=== PATIENT | male | born 1995 | race African-American/Black ===

== ENCOUNTER 2021-01-10 18:53 | Emergency (ER) | payer SELFPAY ==
[2021-01-10] MEDS ORDERED: ACETAMINOPHEN 500 MG TAB ONE (19:44)
[2021-01-10] MEDS ORDERED: HYDROCODONE/APAP 7.5/325 MG TAB ONE (20:59)
[2021-01-10] MEDS ORDERED: BUPIVACAINE 0.5% PF 10 ML VIAL ONE (20:59)
[2021-01-10] MEDS ORDERED: LIDOCAINE 1% MPF 30 ML VIAL ONE (21:00)
[2021-01-10] MEDS ORDERED: TETANUS & DIPHTHERIA TOX,ADULT 0.5 ML VIAL ONE (21:00)
[2021-01-10] MEDS ORDERED: DOXYCYCLINE 100 MG CAP PO ONE (22:17)
[2021-01-10] MEDS ORDERED: SMZ./TMP. 800/160 MG TABLET ONE (22:17)
--- NOTE | 2021-01-10 22:22 | ER ---
Nurse's Notes [facility] Name: Edmundo Vázquez Age: 25 yrs Sex: Male : 1995 Arrival Date: 01/10/2021 Time: 18:55 Bed 12 Private MD: Diagnosis: Puncture wound with foreign body of finger without damage to nail-middle phalanx of right middle finger Presentation: 01/10 19:13 Chief complaint: Patient states: About an hour ago pt was fishing and has a catfish vg1 shahida stuck in Right middle finger. neurology technologist removed fish; shahida is unable to be removed. Coronavirus screen: Client denies travel out of the [place] in the last 14 days. Ebola Screen: Patient negative for fever greater than or equal to 101.5 degrees Fahrenheit, and additional compatible Ebola Virus Disease symptoms. Initial Sepsis Screen: Does the patient meet any 2 criteria? No. Patient's initial sepsis screen is negative. Does the patient have a suspected source of infection? No. Patient's initial sepsis screen is negative. Risk Assessment: Do you want to hurt yourself or someone else? Patient reports no desire to harm self or others. Onset of symptoms was January 10, 2021. 19:13 Method Of Arrival: Ambulatory vg1 19:13 Acuity: SUE 3 vg1 Triage Assessment: 19:18 General: Appears in no apparent distress. uncomfortable, Behavior is calm, cooperative. vg1 Pain: Complains of pain in dorsal aspect of middle phalanx of right middle finger and palmar aspect of middle phalanx of right middle finger Pain currently is 7 out of 10 on a pain scale. Historical: - Allergies: 19:18 No Known Allergies; vg1 - Home Meds: 19:18 None [Active]; vg1 - PMHx: 19:18 None; vg1 - Immunization history:: Adult Immunizations up to date. - Social history:: Smoking status: Patient denies any tobacco usage or history of. Screenin:47 Abuse screen: Denies threats or abuse. Nutritional screening: No deficits noted. bb Tuberculosis screening: No symptoms or risk factors identified. Fall Risk None identified. Assessment: 19:23 Reassessment: Received VO from Nakul ROCHA to administer Tylenol 1 g PO x1. vg1 22:45 Reassessment: Patient is alert, oriented x 3, equal unlabored respirations, skin bb warm/dry/pink. bandage to right middle finger in place, pt verbalized understanding of and agrees to plan of care discharge instructions given pt ambulated with steady gait to exit. Vital Signs: 19:13 BP 122 / 74; Pulse 70; Resp 16; Temp 98.8; Pulse Ox 97% ; Weight 81.65 kg; Height 6 ft. vg1 2 in. (187.96 cm); Pain 7/10; 22:47 BP 123 / 65; Pulse 60; Resp 14 S; Temp 97.6(TE); Pulse Ox 93% on R/A; Pain 0/10; bb 19:13 Body Mass Index 23.11 (81.65 kg, 187.96 cm) vg1 ED Course: 18:55 Patient arrived in ED. mr 19:18 Triage completed. vg1 19:18 Arm band placed on. vg1 19:24 Nakul Traylor PA is PHCP. cp 19:24 Pavel Lrod MD is Attending Physician. cp 21:42 Patito Bhatia RN is Primary Nurse. bb 22:05 XRAY Finger-Thumb RIGHT: right middle In Process Unspecified. EDMS 22:20 Daniel Vazquez MD is Referral Physician. cp 22:44 No provider procedures requiring assistance completed. Patient did not have IV access bb during this emergency room visit. Dressings: Kerlix 4X4s X 1; right middle finger triple antibiotic ointment. 22:47 Patient has correct armband on for positive identification. bb Administered Medications: 19:23 Drug: Tylenol 1000 mg Route: PO; vg1 20:43 Follow up: Response: No adverse reaction bb 20:43 Drug: Tetanus-Diphtheria Toxoid Adult 0.5 ml {Supervisor Claims: [email or web address]. Exp: bb 08/16/2022. Lot #: [id number]. } Route: IM; Site: right deltoid; 22:19 Follow up: Response: No adverse reaction bb 20:44 Drug: Hydrocodone-Acetaminophen (7.5 mg-325 mg) 1 tabs {Note: RASS 0.} Route: PO; bb 22:19 Follow up: Response: No adverse reaction; Pain is decreased; RASS: Alert and Calm (0) bb 21:45 Drug: Lidocaine (1 %) 10 ml {Note: by Nakul ROCHA to affected area.} Volume: 20 ml; bb Route: Infiltration; 22:20 Follow up: Response: No adverse reaction bb 21:45 Drug: Marcaine (bupivacaine) (0.5 %) 10 ml {Note: to affected area by Nakul ROCHA.} bb Volume: 10 ml; Route: Infiltration; 22:20 Follow up: Response: No adverse reaction bb 22:00 Drug: Bactrim (trimethoprim-sulfamethoxazole) (160 mg-800 mg (DS) 1 tablet Route: PO; bb 22:44 Follow up: Response: No adverse reaction bb 22:00 Drug: Doxycycline 100 mg Route: PO; bb 22:44 Follow up: Response: No adverse reaction bb Outcome: 22:22 Discharge ordered by . leonor 22:47 Discharged to home ambulatory. bb 22:47 Condition: stable 22:47 Discharge instructions given to patient, Instructed on discharge instructions, follow up and referral plans. medication usage, wound care, Demonstrated understanding of instructions, follow-up care, medications, wound care, Prescriptions given X 3. 22:48 Patient left the ED. bb Signatures: Dispatcher [employer] Carley Ruiz Patito Bhatia, RN RN Nakul Teran PA PA cp Garcia, Victoria, RN RN vg1
--- NOTE | 2021-01-10 22:22 | EDPHYS ---
Physician Documentation [facility] Name: Edmundo Vázquez Age: 25 yrs Sex: Male : 1995 Arrival Date: 01/10/2021 Time: 18:55 Bed 12 Private MD: ED Physician Pavel Lord HPI: 01/10 20:00 This 25 yrs old Black Male presents to ER via Ambulatory with complaints of fish stuck cp in finger. 20:00 The patient or guardian complains of injury, pain, that is acute, a puncture wound, cp shahida of catfish. The complaints affect the radial side of middle phalanx left middle finger. 20:00 Context: The problem was sustained outdoors. Onset: The symptoms/episode began/occurred cp just prior to arrival. Treatment prior to arrival includes: no previous treatment. Associated signs and symptoms: Pertinent positives: swelling, Pertinent negatives: decreased range of motion, numbness, weakness. Historical: - Allergies: 19:18 No Known Allergies; vg1 - Home Meds: 19:18 None [Active]; vg1 - PMHx: 19:18 None; vg1 - Immunization history:: Adult Immunizations up to date. - Social history:: Smoking status: Patient denies any tobacco usage or history of. ROS: 20:05 MS/extremity: Positive for swelling, tenderness, of the middle phalanx right middle cp finger, Negative for decreased range of motion, paresthesias. 20:05 Skin: Positive for puncture, of the radial side of middle phalanx right middle finger, embedded foreign body. 20:05 Constitutional: Negative for body aches, chills, fever. cp 20:05 Cardiovascular: Negative for chest pain. 20:05 Respiratory: Negative for cough, shortness of breath. 20:05 Abdomen/GI: Negative for abdominal pain. 20:05 Neuro: Negative for altered mental status, headache. 20:05 All other systems are negative. Exam: 20:10 Head/Face: Normocephalic, atraumatic. cp 20:10 Constitutional: The patient appears in no acute distress, alert, awake, non-toxic, well developed, well nourished, uncomfortable. 20:10 Chest/axilla: Inspection: normal. 20:10 Cardiovascular: Rate: normal. 20:10 Respiratory: the patient does not display signs of respiratory distress, Respirations: normal. 20:10 Musculoskeletal/extremity: Extremities: noted in the right middle finger: ROM: limited cp active range of motion due to pain, in the right middle finger, Perfusion: the extremity is normally perfused throughout, Sensation intact. Tendon exam: specific tendon testing normal through active and passive range of motion 20:10 Skin: injury, that can be described as foreign body containing, without bleeding, mild swelling, puncture(s), that are deep, of the radial side middle phalanx right middle finger. Vital Signs: 19:13 BP 122 / 74; Pulse 70; Resp 16; Temp 98.8; Pulse Ox 97% ; Weight 81.65 kg; Height 6 ft. vg1 2 in. (187.96 cm); Pain 7/10; 22:47 BP 123 / 65; Pulse 60; Resp 14 S; Temp 97.6(TE); Pulse Ox 93% on R/A; Pain 0/10; bb 19:13 Body Mass Index 23.11 (81.65 kg, 187.96 cm) vg1 Procedures: 22:00 Foreign Body Removal: a fish bone, from the radial side middle phalanx right middle cp finger, by using a hemostat, Dressinx4s were used to dress the wound, The patient tolerated the removal well, digital block performed with 8 ccs of mixture 1% lidocaine w/o epi and 0.5% marcaine. MDM: 20:00 Differential diagnosis: open fracture, puncture wound, tendon injury, cellulitis. cp 20:28 Patient medically screened. cp 22:22 Data reviewed: vital signs, nurses notes, radiologic studies, plain films. cp 22:22 Test interpretation: by ED physician or midlevel provider: xrays of right middle finger cp negative for fracture. Counseling: I had a detailed discussion with the patient and/or guardian regarding: the historical points, exam findings, and any diagnostic results supporting the discharge/admit diagnosis, radiology results, to return to the emergency department if symptoms worsen or persist or if there are any questions or concerns that arise at home. Response to treatment: the patient's symptoms have markedly improved after treatment, and as a result, I will discharge patient. Special discussion: I discussed in detail with the patient the higher chance of wound infection based on his presenting history. 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 Exp: bb 08/16/2022. Lot #: [id number]. } Route: IM; Site: right deltoid; 22:19 Follow up: Response: No adverse reaction bb 20:44 Drug: Hydrocodone-Acetaminophen (7.5 mg-325 mg) 1 tabs {Note: RASS 0.} Route: PO; bb 22:19 Follow up: Response: No adverse reaction; Pain is decreased; RASS: Alert and Calm (0) bb 21:45 Drug: Lidocaine (1 %) 10 ml {Note: by Nakul ROCHA to affected area.} Volume: 20 ml; bb Route: Infiltration; 22:20 Follow up: Response: No adverse reaction bb 21:45 Drug: Marcaine (bupivacaine) (0.5 %) 10 ml {Note: to affected area by Nakul ROCHA.} bb Volume: 10 ml; Route: Infiltration; 22:20 Follow up: Response: No adverse reaction bb 22:00 Drug: Bactrim (trimethoprim-sulfamethoxazole) (160 mg-800 mg (DS) 1 tablet Route: PO; bb 22:44 Follow up: Response: No adverse reaction bb 22:00 Drug: Doxycycline 100 mg Route: PO; bb 22:44 Follow up: Response: No adverse reaction bb Disposition: 22:30 Chart complete. cp 01/11 03:15 Co-signature as Attending Physician, Pavel Lord MD. pkl Disposition Summary: 01/10/21 22:22 Discharge Ordered Location: Home cp Problem: new cp Symptoms: have improved cp Condition: Stable cp Diagnosis - Puncture wound with foreign body of finger without damage to nail - middle phalanx cp of right middle finger Followup: cp - With: Daniel Vazquez MD - When: 2 - 3 days - Reason: Worsening of condition Discharge Instructions: - Discharge Summary Sheet cp - Puncture Wound cp - Hand or Foot Foreign Body, Adult cp Forms: - Medication Reconciliation Form cp - Thank You Letter cp - Antibiotic Education cp - Prescription Opioid Use cp Prescriptions: - Doxycycline Hyclate 100 mg Oral Tablet - take 1 tablet by ORAL route every 12 hours; 20 tablet; Refills: 0, Product cp Selection Permitted - Diclofenac Sodium 75 mg Oral tablet,delayed release (DR/EC) - take 1 tablet by ORAL route 2 times per day; 20 tablet; Refills: 0, Product cp Selection Permitted - Bactrim DS 800-160 mg Oral Tablet - take 1 tablet by ORAL route every 12 hours for 10 days; 20 tablet; Refills: 0, cp Product Selection Permitted Signatures: Dispatcher [employer] Pavel Rajan MD MD pkl Ballard, Brenda, RN RN bb Nakul Traylor, Phyllis Castaneda cp RN RN vg1 Corrections: (The following items were deleted from the chart) 01/10 22:44 22:20 Splint - Finger ordered. cp heraclio
[2021-01-10 22:58] VITALS: BP 123/65; TEMP 97.6; O2SAT 93
--- NOTE | 2021-01-11 08:57 | RAD REPORT ---
EXAM DESCRIPTION: RAD - Finger-Thumb Right - 01/10/2021 10:05 pm CLINICAL HISTORY: puncture wound COMPARISON: No comparisons FINDINGS: No right middle finger fractures identified. No radiopaque foreign body. IMPRESSION: No acute osseous abnormality or radiopaque foreign body.
== END 2021-01-10 22:48 | disposition home or self-care (01) ==
LOC: ER 18:53
PROC: 3E0T3BZ Introduction of Anesthetic Agent into Peripheral Nerves and Plexi, Percutaneous Approach (ICD-10-PCS; principal; 2021-01-10)
DX: S61.242A Puncture wound with foreign body of right middle finger without damage to nail, initial encounter (principal); W56.59XA Other contact with other fish, initial encounter; Z23 Encounter for immunization
CPT/HCPCS: 90471; 90714; 99283